=== PATIENT | male | born 1960 | race Caucasian/White ===

== ENCOUNTER → 2023-11-30 06:35 | Day surgery (SDC) | payer MEDICARE, OTHER, SELFPAY | LOC: GI 06:35 | PROVIDERS: ATTENDING PHYSICIAN Internal Medicine Gastroenterology | DX: K74.60 Unspecified cirrhosis of liver (principal); K76.6 Portal hypertension; K31.89 Other diseases of stomach and duodenum; I85.10 Secondary esophageal varices without bleeding | CPT/HCPCS: 43244 ==

== ENCOUNTER → 2024-01-04 06:35 | Day surgery (SDC) | payer MEDICARE, OTHER, SELFPAY | LOC: GI 06:35 | PROVIDERS: ATTENDING PHYSICIAN Internal Medicine Gastroenterology | DX: K74.60 Unspecified cirrhosis of liver (principal); I85.00 Esophageal varices without bleeding; K76.6 Portal hypertension; K31.89 Other diseases of stomach and duodenum | CPT/HCPCS: 43244 ==

== ENCOUNTER → 2024-02-23 06:29 | Day surgery (SDC) | payer MEDICARE, OTHER, SELFPAY | LOC: GI 06:29 | PROVIDERS: ATTENDING PHYSICIAN Internal Medicine Gastroenterology | DX: I85.00 Esophageal varices without bleeding (principal); K74.60 Unspecified cirrhosis of liver; K31.9 Disease of stomach and duodenum, unspecified; K76.6 Portal hypertension | CPT/HCPCS: 43235 ==

== ENCOUNTER → 2024-04-19 11:41 | Outpatient (REF) | payer MEDICARE, OTHER, SELFPAY | LOC: RAD 11:41 | PROVIDERS: ATTENDING PHYSICIAN Nurse Practitioner Adult Health; FAMILY PHYSICIAN Registered Nurse | DX: M79.672 Pain in left foot (principal) | CPT/HCPCS: 73630 ==